=== PATIENT | male | born 1955 | race Caucasian/White ===

== ENCOUNTER 2017-08-10 14:07 | Emergency (ER) | payer SELFPAY ==
[~2017-08-10] VITALS: Ht 182.9 cm; Wt 79.0 kg
[2017-08-10] MEDS ORDERED: OXYCODONE HCL/ACETAMINOPHEN 5/325MG TABLET PO ONE (17:45)
[2017-08-10 18:26] VITALS: BP 151/88
== END 2017-08-10 18:50 | disposition home or self-care (01) ==
LOC: ER 16:16
DX: M25.551 Pain in right hip (principal); W01.0XXA Fall on same level from slipping, tripping and stumbling without subsequent striking against object, initial encounter; Y93.89 Activity, other specified; Y92.89 Other specified places as the place of occurrence of the external cause; R03.0 Elevated blood-pressure reading, without diagnosis of hypertension; F17.210 Nicotine dependence, cigarettes, uncomplicated; Z98.890 Other specified postprocedural states
CPT/HCPCS: 73502; 99284